=== PATIENT | female | born 1935 | race Caucasian/White ===

== ENCOUNTER 2017-10-06 14:35 | Inpatient (IN) | payer MEDICARE, MEDICAID ==
[~2017-10-06] VITALS: Ht 152.4 cm; Wt 49.1 kg
[~2017-10-06 14:35] MED LIST: ALPR-154 PO; ATOR20TA9 PO; CARB1TAB43 PO; CARV6.252 PO; DULO30CA2 PO; GABA600T2 PO; HYDR-3245 PO; IBUP200C5 PO; LISI2.5T PO; QUET25TA PO
[2017-10-06 15:03] LABS: BASOPHILS # (AUTO) 0.06 x10^3/uL (0-0.1); BASOPHILS % (AUTO) 1 % (0-1); EOSINOPHILS # (AUTO) 0.23 x10^3/uL (0-0.4); EOSINOPHILS % (AUTO) 3 % (1-7); LYMPHOCYTES # (AUTO) 2.34 x10^3/uL (1-3.4); LYMPHOCYTES % (AUTO) 27 % (22-44); MD NO; MEAN CORPUSCULAR HEMOGLOBIN 31.8 pg (27.0-34.8); MEAN CORPUSCULAR HGB CONC 34.3 g/dL (32.4-35.8); MEAN CORPUSCULAR VOLUME 92.9 fL (80-100); MEAN PLATELET VOLUME 9.1 fL (7.4-10.4); MONOCYTES # (AUTO) 0.79 x10^3/uL (0.2-0.8); MONOCYTES % (AUTO) 9 % (2-9); NEUTROPHILS # (AUTO) 5.24 x10^3/uL (1.8-6.8); NEUTROPHILS % (AUTO) 61 % (42-75); PLATELET COUNT 201 x10^3/uL (130-400); RED BLOOD COUNT 4.76 x10^6/uL (3.82-5.3); RED CELL DISTRIBUTION WIDTH 13.5 % (9.6-15.2)
[2017-10-06] MEDS ORDERED: ATOR20TA9 PO (15:03)
[2017-10-06] MEDS ORDERED: CARB1TAB2 PO (15:03)
[2017-10-06] MEDS ORDERED: SERT50TA PO (15:04)
[2017-10-06] MEDS ORDERED: DICY20TA3 PO (15:04)
[2017-10-06] MEDS ORDERED: LACT10SO28 PO (15:06)
[2017-10-06] MEDS ORDERED: DIVA250T PO (15:06)
[2017-10-06 15:13] LABS: ALBUMIN 3.6 g/dL (3.4-5.0); ANION GAP 5 mmol/L (5-15); CALCIUM 9.1 mg/dL (8.5-10.1); CHLORIDE 111 mmol/L (98-107); CREATININE 0.85 mg/dL (0.55-1.02)
[2017-10-06 16:45] LABS: MICROSCOPIC NOT IND
[2017-10-06 16:49] LABS: CULTURE INDICATED? NO
[2017-10-06] MEDS ORDERED: ACETAMINOPHEN 325 MG TABLET PO PRN (17:00)
[2017-10-06] MEDS ORDERED: hydrALAzine 20 MG/ML, 1ML IVPush PRN (17:00)
[2017-10-06] MEDS ORDERED: ONDANSETRON 2MG/ML, 2ML IVPush PRN (17:00)
[2017-10-06] MEDS ORDERED: GUAIFENESIN/DM 200-20MG, 10ML UDC PO PRN (17:00)
[2017-10-06] MEDS ORDERED: DOCUSATE 100 MG CAPSULE PO PRN (17:00)
[2017-10-06 17:54] VITALS: BP 140/82
[2017-10-06 18:35] VITALS: BP 92/59
[2017-10-06] MEDS: ATORVASTATIN 20 MG TABLET PO SCH (19:40)
[2017-10-06] MEDS: LACTULOSE 10 GM/15 ML UDC PO SCH (19:40)
[2017-10-06] MEDS: CARVEDILOL 6.25 MG TABLET PO SCH ×2 (19:41→21:00)
[2017-10-06] MEDS: CARBIDOPA/LEVODOPA CR 25 MG/100 MG TABLET PO SCH (19:41)
[2017-10-07 01:22] VITALS: BP 106/68
[2017-10-07 04:59] LABS: BASOPHILS # (AUTO) 0.08 x10^3/uL (0-0.1); BASOPHILS % (AUTO) 1 % (0-1); EOSINOPHILS # (AUTO) 0.21 x10^3/uL (0-0.4); EOSINOPHILS % (AUTO) 3 % (1-7); LYMPHOCYTES # (AUTO) 2.19 x10^3/uL (1-3.4); LYMPHOCYTES % (AUTO) 34 % (22-44); MD NO; MEAN CORPUSCULAR HEMOGLOBIN 31.2 pg (27.0-34.8); MEAN CORPUSCULAR HGB CONC 33.6 g/dL (32.4-35.8); MEAN PLATELET VOLUME 9.8 fL (7.4-10.4); MONOCYTES # (AUTO) 0.66 x10^3/uL (0.2-0.8); MONOCYTES % (AUTO) 10 % (2-9); NEUTROPHILS # (AUTO) 3.27 x10^3/uL (1.8-6.8); NEUTROPHILS % (AUTO) 51 % (42-75); PLATELET COUNT 162 x10^3/uL (130-400); RED BLOOD COUNT 4.48 x10^6/uL (3.82-5.3); RED CELL DISTRIBUTION WIDTH 13.6 % (9.6-15.2)
[2017-10-07 05:03] LABS: ANION GAP 7 mmol/L (5-15); CALCIUM 8.2 mg/dL (8.5-10.1); CHLORIDE 113 mmol/L (98-107)
[2017-10-07] MEDS: CARBIDOPA/LEVODOPA CR 25 MG/100 MG TABLET PO SCH ×4 (06:06→22:01)
[2017-10-07 06:44] VITALS: BP 108/69
[2017-10-07] MEDS ORDERED: DIVALPROEX 250 MG TAB.ER.24H PO SCH (09:00)
[2017-10-07] MEDS: LACTULOSE 10 GM/15 ML UDC PO SCH ×3 (09:00→22:01)
[2017-10-07] MEDS: SERTRALINE 50MG TABLET PO SCH (09:00)
[2017-10-07] MEDS: DICYCLOMINE 20 MG TABLET PO SCH (09:00)
[2017-10-07] MEDS ORDERED: LISINOPRIL 10 MG TABLET PO SCH (09:00)
[2017-10-07] MEDS: CARVEDILOL 6.25 MG TABLET PO SCH ×2 (09:00→22:01)
[2017-10-07 12:57] VITALS: BP 114/72
[2017-10-07] MEDS ORDERED: FENTANYL PF 100 MCG/2ML ONE ×2 (13:42)
[2017-10-07] MEDS ORDERED: MIDAZOLAM 1 MG/ML, 5ML ONE ×2 (13:42)
[2017-10-07] MEDS ORDERED: FLUMAZENIL 0.1 MG/1 ML, 5ML ONE (13:43)
[2017-10-07] MEDS ORDERED: NALOXONE 1 MG/ML, 2ML ONE (13:43)
[2017-10-07] MEDS ORDERED: LORazepam 2 MG/ML, 1ML ONE (14:51)
[2017-10-07] MEDS ORDERED: LORazepam 2 MG/ML, 1ML IVPush ONE (15:00)
[2017-10-07 16:00] LABS: GLUCOSE, CSF 45 mg/dL (40-80); TOTAL PROTEIN,CSF 59 mg/dL (15-45)
[2017-10-07] MEDS ORDERED: LORazepam 1MG TABLET PO ONE (17:55)
[2017-10-07 18:45] VITALS: BP 122/68
[2017-10-07] MEDS: ATORVASTATIN 20 MG TABLET PO SCH (22:01)
[2017-10-08 03:05] VITALS: BP 108/57
[2017-10-08] MEDS: CARBIDOPA/LEVODOPA CR 25 MG/100 MG TABLET PO SCH ×2 (05:55→11:01)
[2017-10-08 07:57] VITALS: BP 118/69
[2017-10-08] MEDS: LACTULOSE 10 GM/15 ML UDC PO SCH (08:50)
[2017-10-08] MEDS: SERTRALINE 50MG TABLET PO SCH (08:50)
[2017-10-08] MEDS: CARVEDILOL 6.25 MG TABLET PO SCH (08:51)
[2017-10-08] MEDS: DICYCLOMINE 20 MG TABLET PO SCH (08:51)
[2017-10-08] MEDS ORDERED: LISINOPRIL 5 MG TABLET PO SCH (09:00)
[2017-10-08] MEDS ORDERED: DIVALPROEX 125 MG TABLET.DR PO SCH (09:04)
== END 2017-10-08 12:42 | disposition home health service (06) | DRG 56 ==
LOC: ED 15:59 → EDIP 16:00 → ED 16:37 → 3NW 17:47
PROVIDERS: ADMIT Hospitalist; ATTEND Hospitalist
PROC: 009U3ZZ Drainage of Spinal Canal, Percutaneous Approach (ICD-10-PCS; principal; 2017-10-07)
PROC: B01B1ZZ Fluoroscopy of Spinal Cord using Low Osmolar Contrast (ICD-10-PCS; 2017-10-07)
DX: G91.2 (Idiopathic) normal pressure hydrocephalus (principal); G93.40 Encephalopathy, unspecified; F02.80 Dementia in other diseases classified elsewhere, unspecified severity, without behavioral disturbance, psychotic disturbance, mood disturbance, and anxiety; G20 Parkinson's disease; E78.5 Hyperlipidemia, unspecified; I10 Essential (primary) hypertension; Z96.652 Presence of left artificial knee joint; M19.90 Unspecified osteoarthritis, unspecified site; R45.1 Restlessness and agitation; R27.0 Ataxia, unspecified; Z82.49 Family history of ischemic heart disease and other diseases of the circulatory system; Z82.5 Family history of asthma and other chronic lower respiratory diseases
CPT/HCPCS: 36415; 62270; 70450; 71045; 80048; 81003; 82040; 82042; 82784; 82945; 83735; 83873; 84157; 85025; 86645; 86695; 86696; 86762; 86777; 86778; 89051; 93005; 99156; 99157; 99285; J2250; J3010; J2060; J2310